=== PATIENT | male | born 1980 | race African-American/Black ===

== ENCOUNTER 2018-07-27 03:03 | Emergency (ER) | payer SELFPAY ==
[~2018-07-27] VITALS: Ht 177.8 cm; Wt 77.1 kg
--- NOTE | 2018-07-27 03:08 | ED.ADGEN ---
Past History Past Medical History: Alcoholism Smoking: Cigarettes Alcohol Use: Heavy Drug Use: Marijuana, Methamphetamine, Other Adult General Chief Complaint Chief Complaint ".. I was doing some meth.. about two years ago.. and got chest pain....".. " I ve been having it for two years...".. " It just seemed worse tonight..." " I ve not done any drugs the past month because I ve been in [facility]... I just got out..." HPI HPI Patient is a 37 year old male who presents with above hx and complaints of chest pain that he rates as 04/07. Pt. is left sided. Pain has been present for 2 yrs. and snorting meth. Pt. states he has not done drugs for past 11 month because he has been in [place] and [facility] jails. Pt. does smoke. Patient has been out of snf for the past 10 days. Patient localizes pain on the left sided chest. Coughing and movement makes pain worse. Patient denies previous heart attacks. Patient denies any recent trauma. Patient denies any recent travel. Patient denies any specific ill contacts. Patient has been coughing that is nonproductive. Patient states he has had a heart murmur in the past. Pt. normally follows at Review of Systems Review of Systems Constitutional: Denies fever or chills [] Eyes: Denies change in visual acuity, redness, or eye pain [] HENT: Denies nasal congestion or sore throat [] Respiratory: History of cough and wheezing Cardiovascular: No additional information not addressed in HPI [] GI: Denies abdominal pain, nausea, vomiting, bloody stools or diarrhea [] : Denies dysuria or hematuria [] Musculoskeletal: Denies back pain or joint pain [] Integument: Denies rash or skin lesions [] Neurologic: Denies headache, focal weakness or sensory changes [] Endocrine: Denies polyuria or polydipsia [] All other systems were reviewed and found to be within normal limits, except as documented in this note. Family History Family History Mother just had a heart transplant at . Current Medications Current Medications Current Medications Medications (Trade) Dose Ordered Sig/Chester Start Time Stop Time Status Last Admin Dose Admin Aspirin (Children'S Aspirin) 324 mg 1X ONCE 07/27/18 03:30 07/27/18 03:31 DC Ketorolac Tromethamine (Toradol 30mg Vial) 30 mg 1X ONCE 07/27/18 05:30 07/27/18 05:31 DC 07/27/18 05:46 30 MG Lactated Ringer's 1,000 ml @ 1,000 mls/hr Q1H 07/27/18 03:30 07/27/18 04:29 DC 07/27/18 04:26 1,000 MLS/HR Allergies Allergies Allergies Coded Allergies Type Severity Reaction Last Updated Verified No Known Drug Allergies 07/27/18 No Physical Exam Physical Exam Constitutional: Well developed, well nourished, no acute distress, appear intoxicated appearance. [] HENT: Normocephalic, atraumatic, bilateral external ears normal, oropharynx moist, no oral exudates, nose normal. [] Eyes: PERRLA, EOMI, conjunctiva injected, no discharge. [] Neck: Normal range of motion, no tenderness, supple, no stridor. [] Cardiovascular: Tachycardia Heart rate regular rhythm, no murmur appreciated. Lungs & Thorax: Bilateral breath sounds equal apex with scattered wheezes on auscultation [] Abdomen: Bowel sounds normal, soft, no tenderness, no masses, no pulsatile masses. [] Skin: Warm, dry, no erythema, no rash. [] Multiple tattoos. Back: No tenderness, no CVA tenderness. [] Extremities: No tenderness, no cyanosis, no clubbing, ROM intact, no edema. [] No cording appreciated Neurologic: Alert and oriented X 3, normal motor function, normal sensory function, no focal deficits noted. []Mild discoordinated. Psychologic: Affect normal, judgement normal, mood normal. [] Current Patient Data Vital Signs Vital Signs Date Time Temp Pulse Resp B/P (MAP) Pulse Ox O2 Delivery O2 Flow Rate FiO2 07/27/18 03:10 98.3 106 24 100 Room Air Lab Results Laboratory Tests Test 07/27/18 03:15 07/27/18 04:30 White Blood Count 8.9 x10^3/uL (4.0-11.0) Red Blood Count 5.42 x10^6/uL (4.30-5.70) Hemoglobin 15.2 g/dL (13.0-17.5) Hematocrit 45.0 % (39.0-53.0) Mean Corpuscular Volume 83 fL (79-100) Mean Corpuscular Hemoglobin 28 pg (25-35) Mean Corpuscular Hemoglobin Concent 34 g/dL (31-37) Red Cell Distribution Width 14.3 % (11.5-14.5) Platelet Count 365 x10^3/uL (140-400) Neutrophils (%) (Auto) 68 % (31-73) Lymphocytes (%) (Auto) 19 % (24-48) L Monocytes (%) (Auto) 11 % (0-9) H Eosinophils (%) (Auto) 0 % (0-3) Basophils (%) (Auto) 1 % (0-3) Neutrophils # (Auto) 6.0 x10^3uL (1.8-7.7) Lymphocytes # (Auto) 1.7 x10^3/uL (1.0-4.8) Monocytes # (Auto) 1.0 x10^3/uL (0.0-1.1) Eosinophils # (Auto) 0.0 x10^3/uL (0.0-0.7) Basophils # (Auto) 0.1 x10^3/uL (0.0-0.2) Prothrombin Time 11.0 SEC (9.4-11.4) Prothrombin Time INR 1.1 (0.9-1.1) PTT 22 SEC (23-33) L D-Dimer (Lory) < 0.19 mg/L (0.00-0.50) Sodium Level 136 mmol/L (136-145) Potassium Level 3.5 mmol/L (3.5-5.1) Chloride Level 100 mmol/L (98-107) Carbon Dioxide Level 22 mmol/L (21-32) Anion Gap 14 (6-14) Blood Urea Nitrogen 14 mg/dL (8-26) Creatinine 1.3 mg/dL (0.7-1.3) Estimated GFR (Cockcroft-Gault) 74.4 Glucose Level 101 mg/dL (70-99) H Calcium Level 9.1 mg/dL (8.5-10.1) Magnesium Level 2.3 mg/dL (1.8-2.4) Total Bilirubin 0.8 mg/dL (0.2-1.0) Direct Bilirubin 0.2 mg/dL (0.0-0.2) Aspartate Amino Transferase (AST) 19 U/L (15-37) Alanine Aminotransferase (ALT) 27 U/L (16-63) Alkaline Phosphatase 95 U/L (46-116) Creatine Kinase 221 U/L (39-308) Troponin I Quantitative < 0.017 ng/mL (0-0.055) AD-Lvc-B-Type Natriuretic Peptide 5 pg/mL (0-124) Total Protein 8.2 g/dL (6.4-8.2) Albumin 4.0 g/dL (3.4-5.0) Triglycerides Level 69 mg/dL (0-150) Cholesterol Level 201 mg/dL (0-200) H LDL Cholesterol, Calculated 108 mg/dL (0-100) H VLDL Cholesterol, Calculated 13 mg/dL (0-40) Non-HDL Cholesterol Calculated 121 mg/dL (0-129) HDL Cholesterol 80 mg/dL (40-60) H Cholesterol/HDL Ratio 2.0 Lipase 192 U/L (73-393) Thyroid Stimulating Hormone (TSH) 1.239 uIU/mL (0.358-3.740) Urine Collection Type Void Urine Color Yellow Urine Clarity Clear Urine pH 6.0 Urine Specific [place] 1.010 Urine Protein Neg (NEG-TRACE) Urine Glucose (UA) Neg mg/dL (NEG) Urine Ketones (Stick) 40 mg/dL (NEG) Urine Blood Neg (NEG) Urine Nitrite Neg (NEG) Urine Bilirubin Neg (NEG) Urine Urobilinogen Dipstick 0.2 mg/dL (0.2 mg/dL) Urine Leukocyte Esterase Neg (NEG) Urine RBC 0 /HPF (0-2) Urine WBC 1-4 /HPF (0-4) Urine Squamous Epithelial Cells Occ /LPF Urine Bacteria 0 /HPF (0-FEW) Urine Mucus Slight /LPF Urine Opiates Screen Neg (NEG) Urine Methadone Screen Neg (NEG) Urine Barbiturates Neg (NEG) Urine Phencyclidine Screen Neg (NEG) Urine Amphetamine/Methamphetamine Pos (NEG) Urine Benzodiazepines Screen Neg (NEG) Urine Cocaine Screen Neg (NEG) Urine Cannabinoids Screen Pos (NEG) Urine Ethyl Alcohol Pos (NEG) EKG EKG My interpretation EKG shows a sinus tachycardia at rate 113. No findings acute STEMI of contralateral changes. Radiology/Procedures Radiology/Procedures Interpretation of chest x-ray shows no acute cardiopulmonary findings.[] Course & Med Decision Making Course & Med Decision Making Pertinent Labs and Imaging studies reviewed. (See chart for details) Take daily 81 mg aspirin. Take Tylenol and ibuprofen for pain. Avoid illicit drug use. Reduce alcohol use. Follow-up primary care. Stop smoking. Consider out pt. cardiology consult. [] Final Impression Final Impression 1. Chest Pain 2. Hx of Polysubstance Abuse[] Dragon Disclaimer Dragon Disclaimer This electronic medical record was generated, in whole or in part, using a voice recognition dictation system. LUIZ STEVENSON MD Jul 27, 2018 03:08
[2018-07-27 03:10] VITALS: BP 142/83
--- NOTE | 2018-07-27 03:17 | EKG ---
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
[2018-07-27] MEDS ORDERED: ASPIRIN 81 MG TAB.CHEW PO ONE (03:30)
[2018-07-27] MEDS ORDERED: IV RINGERS SOLUTION,LACTATED 1,000 ML IV SCH (03:30)
[2018-07-27 03:37] LABS: BASO # 0.1 x10^3/uL (0.0-0.2); BASO % 1 % (0-3); EOS % 0 % (0-3); HEMOGLOBIN 15.2 g/dL (13.0-17.5); LYMPH # 1.7 x10^3/uL (1.0-4.8); LYMPH % 19 % (24-48); MEAN CORPUSCULAR HEMOGLOBIN 28 pg (25-35); MEAN CORPUSCULAR HGB CONC 34 g/dL (31-37); MEAN CORPUSCULAR VOLUME 83 fL (79-100); MONO % 11 % (0-9); NEUT % 68 % (31-73); PLATELET COUNT 365 x10^3/uL (140-400); RED BLOOD COUNT 5.42 x10^6/uL (4.30-5.70); RED CELL DISTRIBUTION WIDTH 14.3 % (11.5-14.5); WHITE BLOOD COUNT 8.9 x10^3/uL (4.0-11.0)
--- NOTE | 2018-07-27 03:45 | RAD ---
CHEST PA LATERAL Technique: PA and lateral views of the chest were obtained. Clinical History: CHEST PAIN, SOA Comparison: None. Findings: The heart and pulmonary vasculature appear within normal limits. The lungs are clear. The pleural margins are clear. Impression: No acute chest process is seen. Electronically signed by: Chris Montano III, MD (07/27/2018 3:42 AM) [facility]
[2018-07-27 03:55] LABS: CALCIUM 9.1 mg/dL (8.5-10.1); CREATININE 1.3 mg/dL (0.7-1.3); DIRECT BILIRUBIN 0.2 mg/dL (0.0-0.2); GFR 74.4; MAGNESIUM 2.3 mg/dL (1.8-2.4); POTASSIUM 3.5 mmol/L (3.5-5.1); TOTAL BILIRUBIN 0.8 mg/dL (0.2-1.0); TOTAL PROTEIN 8.2 g/dL (6.4-8.2)
[2018-07-27 05:01] LABS: BARBITURATES NEG (NEG); BENZODIAZEPINES NEG (NEG); CANNABINOIDS POS (NEG); COCAINE NEG (NEG); METHADONE NEG (NEG); OPIATES NEG (NEG); PHENCYCLIDINE NEG (NEG)
[2018-07-27 05:02] LABS: AMPHETAMINE/METHAMPHETAMINE POS (NEG)
[2018-07-27 05:10] LABS: BILIRUBIN,URINE NEG (NEG); CLARITY,URINE CLEAR; COLOR,URINE YELLOW; GLUCOSE,URINE NEG (NEG); NITRITE,URINE NEG (NEG); RBC,URINE 0 /HPF (0-2); UROBILINOGEN,URINE 0.2 mg/dL (0.2 mg/dL)
[2018-07-27 05:11] LABS: BACTERIA,URINE 0 /HPF (0-FEW); SQUAMOUS EPITHELIAL CELL,UR OCC /LPF
[2018-07-27] MEDS ORDERED: KETOROLAC 30 MG/ML VIAL. IV ONE (05:30)
[2018-07-27 13:56] LABS: THYROID STIM HORMONE (TSH) 1.239 uIU/mL (0.358-3.740)
== END 2018-07-27 06:50 | disposition home or self-care (01) ==
LOC: ER 03:03
DX: R07.89 Other chest pain (principal); F19.10 Other psychoactive substance abuse, uncomplicated; F14.10 Cocaine abuse, uncomplicated; F15.10 Other stimulant abuse, uncomplicated; F17.210 Nicotine dependence, cigarettes, uncomplicated; F10.20 Alcohol dependence, uncomplicated; Y90.0 Blood alcohol level of less than 20 mg/100 ml
CPT/HCPCS: 36415; 71046; 80048; 80061; 80076; 80307; 81001; 82550; 83690; 83735; 83880; 84443; 84484; 85025; 85379; 85610; 85730; 93005; 96374; 99285; J1885; J7120; G0479

== ENCOUNTER 2019-03-08 14:41 | Emergency (ER) | payer SELFPAY ==
[~2019-03-08] VITALS: Ht 177.8 cm; Wt 77.1 kg
[2019-03-08] MEDS ORDERED: IV NORMAL SALINE 1,000ML 1,000 ML IV SCH (14:42)
[2019-03-08] MEDS ORDERED: ASPIRIN 81 MG TAB.CHEW PO ONE (14:45)
--- NOTE | 2019-03-08 14:55 | PHYS DOC ---
Past History Past Medical History: Alcoholism (MIKE YAO DO) Past Surgical History: No Surgical History [facility] Smoking: Cigarettes Alcohol Use: Heavy Drug Use: Marijuana, Methamphetamine, Other (MIKE YAO DO) Adult General Chief Complaint Chief Complaint: CHEST PAIN HPI HPI Patient is a 38-year-old male presents with left-sided chest discomfort that initially started on his right side migrated across about 3-4 hours ago. Increased pain with breathing. It is currently in his left chest, reports it is moderate to severe in intensity. No radiation of the discomfort. Patient reports last using methamphetamine approximately 7 hours prior to arrival. He has had 2 previous episodes of chest discomfort after methamphetamine use. Has never seen a doctor for this. Notes he is having some shortness of breath. Denies any fever or cough. He uses methamphetamine today by snorting. He also smokes sit in the past. No nausea or vomiting. No home medicine is been taken. EMS gave aspirin in route.[] (MIKE YAO ) Review of Systems Review of Systems Constitutional: Denies fever or chills [] Eyes: Denies change in visual acuity, redness, or eye pain [] HENT: Denies nasal congestion or sore throat [] Respiratory: Denies cough or shortness of breath [] Cardiovascular: No additional information not addressed in HPI [] GI: Denies abdominal pain, nausea, vomiting, bloody stools or diarrhea [] : Denies dysuria or hematuria [] Musculoskeletal: Denies back pain or joint pain [] Integument: Denies rash or skin lesions [] Neurologic: Denies headache, focal weakness or sensory changes [] Endocrine: Denies polyuria or polydipsia [] All other systems were reviewed and found to be within normal limits, except as documented in this note. (MIKE YAO ) Current Medications Current Medications Current Medications Medications (Trade) Dose Ordered Sig/Chester Start Time Stop Time Status Last Admin Dose Admin Aspirin (Children'S Aspirin) 324 mg 1X ONCE 03/08/19 14:45 03/08/19 14:47 DC Sodium Chloride 1,000 ml @ 1,000 mls/hr Q1H 03/08/19 14:42 03/08/19 15:41 ([facility] Allergies Allergies Allergies Coded Allergies Type Severity Reaction Last Updated Verified No Known Drug Allergies 10/29/18 No (MIKE YAO DO) Physical Exam Physical Exam Constitutional: Well developed, well nourished, mild discomfort, non-toxic appearance. [] HENT: Normocephalic, atraumatic, bilateral external ears normal, oropharynx moist, no oral exudates, nose normal. [] Eyes: PERRLA, EOMI, conjunctiva normal, no discharge. [] Neck: Normal range of motion, no tenderness, supple, no stridor. [] Cardiovascular:Heart rate is tachycardic with a regular rhythm, no murmur [] Lungs & Thorax: Bilateral breath sounds clear to auscultation, left chest discomfort to palpation. This re-creates the pain. There is no flail segment, no subcutaneous emphysema. [] Abdomen: Bowel sounds normal, soft, no tenderness, no masses, no pulsatile masses. [] Skin: Warm, dry, no erythema, no rash. [] Back: No tenderness, no CVA tenderness. [] Extremities: No tenderness, no cyanosis, no clubbing, ROM intact, no edema. [] Neurologic: Alert and oriented X 3, normal motor function, normal sensory function, no focal deficits noted. [] Psychologic: Affect normal, judgement normal, mood normal. [] (MIKE YAO DO) EKG EKG EKG shows a sinus tachycardia at 110 bpm, normal axis, QTC 438 ms, no ST el evations. No old EKG available for comparison. Interpreted by me at 1445.[] (MIKE YAO DO) Radiology/Procedures Radiology/Procedures PORTABLE CHEST 1V History: Left sided chest pain Comparison with 07/27/2018. FINDINGS: The heart size is not enlarged. No evidence of pneumothorax, pleural effusionr or infiltrate. Bones appear intact IMPRESSION: No evidence of consolidating infiltrate.[] (MIKE YAO DO) Course & Med Decision Making Course & Med Decision Making Pertinent Labs and Imaging studies reviewed. (See chart for details) ED course: Patient arrived, was placed in bed, and tolerated exam well. He was given aspirin by EMS. Additional aspirin was held in the emergency department. Due to his agitation and reported sympathomimetic use/abuse, he was given benzodiazepines and several divided doses to control the agitation. This didn't improve his pain. Patient has been resting comfortably pending a second set of cardiac enzymes. Patient care was endorsed to the oncoming physician at 1800 with the second set of cardiac enzymes pending.[] (MIKE YAO DO) Course & Med Decision Making Impression: 1. Chest Pain- suspect multifactorial- 2. Polysubstance Abuse 3. Drug Screen + Meth 4. Hypokalemia 3.2 5. Elevated Silvio. - "? Biliary Colic 6. Tobacco Use Pt. requesting discharge. Risks discussed. Pt. exhibit UCAR capacity. Declines admission. Pt. encouraged to stop drug abuse and smoking. At time of discharge pt. with out complaints. Encouraged pt. to follow up with primary. Return if any concerns. (LUIZ STEVENSON MD) Dragon Disclaimer Dragon Disclaimer This electronic medical record was generated, in whole or in part, using a voice recognition dictation system. (MIKE YAO DO) Departure Departure: Referrals: PCP,NO (PCP) Discharge Summary Visit Information Final Diagnosis Problems Medical Problems: (1) Chest pain Status: Acute (2) Polysubstance abuse Status: Acute (LUIZ STEVENSON MD) Brief Hospital Course Allergies Allergies Coded Allergies Type Severity Reaction Last Updated Verified No Known Drug Allergies 07/27/18 No Vital Signs Vital Signs Date Time Temp Pulse Resp B/P (MAP) Pulse Ox O2 Delivery O2 Flow Rate FiO2 03/08/19 20:33 80 16 142/94 (110) 96 Room Air 03/08/19 14:41 97.4 Lab Results Laboratory Tests Test 03/08/19 14:42 03/08/19 14:52 03/08/19 17:56 03/08/19 18:58 Prothrombin Time 11.1 SEC (9.4-11.4) Prothromb Time International Ratio 1.1 (0.9-1.1) Activated Partial Thromboplast Time 25 SEC (23-33) Urine Opiates Screen Neg (NEG) Urine Methadone Screen Neg (NEG) Urine Barbiturates Neg (NEG) Urine Phencyclidine Screen Neg (NEG) Urine Amphetamine/Methamphetamine Pos (NEG) Urine Benzodiazepines Screen Neg (NEG) Urine Cocaine Screen Neg (NEG) Urine Cannabinoids Screen Neg (NEG) Urine Ethyl Alcohol Neg (NEG) White Blood Count 6.9 x10^3/uL (4.0-11.0) Red Blood Count 5.75 x10^6/uL (4.30-5.70) Hemoglobin 16.5 g/dL (13.0-17.5) Hematocrit 48.4 % (39.0-53.0) Mean Corpuscular Volume 84 fL (79-100) Mean Corpuscular Hemoglobin 29 pg (25-35) Mean Corpuscular Hemoglobin Concent 34 g/dL (31-37) Red Cell Distribution Width 13.7 % (11.5-14.5) Platelet Count 294 x10^3/uL (140-400) Neutrophils (%) (Auto) 66 % (31-73) Lymphocytes (%) (Auto) 22 % (24-48) Monocytes (%) (Auto) 12 % (0-9) Eosinophils (%) (Auto) 0 % (0-3) Basophils (%) (Auto) 1 % (0-3) Neutrophils # (Auto) 4.5 x10^3uL (1.8-7.7) Lymphocytes # (Auto) 1.5 x10^3/uL (1.0-4.8) Monocytes # (Auto) 0.8 x10^3/uL (0.0-1.1) Eosinophils # (Auto) 0.0 x10^3/uL (0.0-0.7) Basophils # (Auto) 0.1 x10^3/uL (0.0-0.2) D-Dimer (Lory) < 0.19 mg/L (0.00-0.50) Sodium Level 138 mmol/L (136-145) Potassium Level 3.2 mmol/L (3.5-5.1) Chloride Level 99 mmol/L (98-107) Carbon Dioxide Level 26 mmol/L (21-32) Anion Gap 13 (6-14) Blood Urea Nitrogen 6 mg/dL (8-26) Creatinine 1.1 mg/dL (0.7-1.3) Estimated GFR (Cockcroft-Gault) 89.7 BUN/Creatinine Ratio 5 (6-20) Glucose Level 94 mg/dL (70-99) Calcium Level 9.6 mg/dL (8.5-10.1) Magnesium Level 2.0 mg/dL (1.8-2.4) Total Bilirubin 2.4 mg/dL (0.2-1.0) Aspartate Amino Transf (AST/SGOT) 28 U/L (15-37) Alanine Aminotransferase (ALT/SGPT) 32 U/L (16-63) Alkaline Phosphatase 91 U/L (46-116) Troponin I Quantitative < 0.017 ng/mL (0-0.055) < 0.017 ng/mL (0-0.055) ZU-Byv-Z-Type Natriuretic Peptide 22 pg/mL (0-124) Total Protein 8.5 g/dL (6.4-8.2) Albumin 4.3 g/dL (3.4-5.0) Albumin/Globulin Ratio 1.0 (1.0-1.7) Lipase 201 U/L (73-393) Urine Collection Type Unknown Urine Color Yellow Urine Clarity Hazy Urine pH 7.0 Urine Specific [place] 1.010 Urine Protein Neg (NEG-TRACE) Urine Glucose (UA) Neg mg/dL (NEG) Urine Ketones (Stick) 40 mg/dL (NEG) Urine Blood Neg (NEG) Urine Nitrite Neg (NEG) Urine Bilirubin Neg (NEG) Urine Urobilinogen Dipstick 0.2 mg/dL (0.2 mg/dL) Urine Leukocyte Esterase Neg (NEG) Urine RBC 0 /HPF (0-2) Urine WBC 0 /HPF (0-4) Urine Squamous Epithelial Cells Occ /LPF Urine Bacteria 0 /HPF (0-FEW) Brief Hospital Course Mr. Soto is a 38 old male who presented with chest pain after using meth. Declines admission, demands discharge. (LUIZ STEVENSON MD) Discharge Information Condition at Discharge: Improved, Stable Disposition/Orders: D/C to Home Dischare Medications Current Medications Aspirin (Children'S Aspirin) 324 mg 1X ONCE PO ; Start 03/08/19 at 14:45; Stop 03/08/19 at 14:47; Status DC Sodium Chloride 1,000 ml @ 1,000 mls/hr Q1H IV Last administered on 03/08/19at 14:55; Start 03/08/19 at 14:42; Stop 03/08/19 at 15:41; Status DC Lorazepam (Ativan Inj) 1 mg 1X ONCE IV Last administered on 03/08/19at 15:03; Start 03/08/19 at 15:00; Stop 03/08/19 at 15:01; Status DC Lorazepam (Ativan Inj) 1 mg 1X ONCE IV Last administered on 03/08/19at 15:43; Start 03/08/19 at 15:45; Stop 03/08/19 at 15:46; Status DC Lactated Ringer's 1,000 ml @ 1,000 mls/hr 1X ONCE IV ; Start 03/08/19 at 18:15; Stop 03/08/19 at 19:14; Status DC Lactated Ringer's 1,000 ml @ 1,000 mls/hr 1X STAT IV ; Start 03/08/19 at 18:27; Stop 03/08/19 at 19:26; Status DC Potassium Chloride (KCl Oral Soln) 40 meq 1X ONCE PO ; Start 03/08/19 at 20:30; Stop 03/08/19 at 20:31; Status DC Active Scripts Active Reported No Known Medications Prior To Admisstion (Info) Each 1 Each MC (LUIZ STEVENSON MD) Dragon Disclaimer This chart was dictated in whole or in part using Voice Recognition software in a busy, high-work load, and often noisy Emergency Department environment. It may contain unintended and wholly unrecognized errors or omissions. (LUIZ STEVENSON MD) MIKE YAO DO Mar 08, 2019 14:55 LUIZ STEVENSON MD Mar 09, 2019 03:55
[2019-03-08 15:07] LABS: BASO # 0.1 x10^3/uL (0.0-0.2); BASO % 1 % (0-3); EOS % 0 % (0-3); HEMATOCRIT 48.4 % (39.0-53.0); HEMOGLOBIN 16.5 g/dL (13.0-17.5); LYMPH # 1.5 x10^3/uL (1.0-4.8); LYMPH % 22 % (24-48); MEAN CORPUSCULAR HEMOGLOBIN 29 pg (25-35); MEAN CORPUSCULAR HGB CONC 34 g/dL (31-37); MEAN CORPUSCULAR VOLUME 84 fL (79-100); MONO # 0.8 x10^3/uL (0.0-1.1); MONO % 12 % (0-9); NEUT # 4.5 x10^3uL (1.8-7.7); NEUT % 66 % (31-73); PLATELET COUNT 294 x10^3/uL (140-400); RED BLOOD COUNT 5.75 x10^6/uL (4.30-5.70); RED CELL DISTRIBUTION WIDTH 13.7 % (11.5-14.5); WHITE BLOOD COUNT 6.9 x10^3/uL (4.0-11.0)
--- NOTE | 2019-03-08 15:18 | RAD ---
PORTABLE CHEST 1V History: Left sided chest pain Comparison with 07/27/2018. FINDINGS: The heart size is not enlarged. No evidence of pneumothorax, pleural effusionr or infiltrate. Bones appear intact IMPRESSION: No evidence of consolidating infiltrate. Electronically signed by: Raghavendra Roth MD (03/08/2019 3:15 PM) [id number]
[2019-03-08 15:23] LABS: ALBUMIN 4.3 g/dL (3.4-5.0); CALCIUM 9.6 mg/dL (8.5-10.1); CREATININE 1.1 mg/dL (0.7-1.3); GFR 89.7; POTASSIUM 3.2 mmol/L (3.5-5.1); TOTAL BILIRUBIN 2.4 mg/dL (0.2-1.0); TOTAL PROTEIN 8.5 g/dL (6.4-8.2)
[2019-03-08] MEDS ORDERED: IV RINGERS SOLUTION,LACTATED 1,000 ML IV ONE (18:15)
[2019-03-08] MEDS ORDERED: IV RINGERS SOLUTION,LACTATED 1,000 ML IV STA (18:27)
[2019-03-08 19:41] LABS: BARBITURATES NEG (NEG); BENZODIAZEPINES NEG (NEG); CANNABINOIDS NEG (NEG); COCAINE NEG (NEG); METHADONE NEG (NEG); OPIATES NEG (NEG); PHENCYCLIDINE NEG (NEG)
[2019-03-08 19:42] LABS: AMPHETAMINE/METHAMPHETAMINE POS (NEG)
[2019-03-08 19:49] LABS: BACTERIA,URINE 0 /HPF (0-FEW); BILIRUBIN,URINE NEG (NEG); CLARITY,URINE HAZY; COLOR,URINE YELLOW; GLUCOSE,URINE NEG (NEG); NITRITE,URINE NEG (NEG); RBC,URINE 0 /HPF (0-2); SQUAMOUS EPITHELIAL CELL,UR OCC /LPF; UROBILINOGEN,URINE 0.2 mg/dL (0.2 mg/dL); WBC,URINE 0 /HPF (0-4)
[2019-03-08] MEDS ORDERED: POTASSIUM CHLORIDE 20 MEQ/15 ML ORAL LIQUID. PO ONE (20:30)
[2019-03-08 20:33] VITALS: BP 142/94
--- NOTE | 2019-03-11 07:39 | EKG ---
[address] [address] Test Date: 2019-03-08 Test Time: 14:45:21 Pat Name: KOBY PATEL Department: Room: Gender: M Infrastructure Design Engineer: : 1980 Requested By: MIKE YAO Order Number: [id number] Reading MD: Measurements Intervals [place] Rate: 110 P: 70 [place]: 118 QRS: 80 QRSD: 80 T: 43 QT: 320 QTc: 438 Interpretive Statements SINUS TACHYCARDIA OTHERWISE NORMAL ECG RI6.01 No previous ECG available for comparison
== END 2019-03-08 20:38 | disposition home or self-care (01) ==
LOC: ER 14:41
DX: R07.89 Other chest pain (principal); F19.10 Other psychoactive substance abuse, uncomplicated; F15.10 Other stimulant abuse, uncomplicated; E87.6 Hypokalemia; F17.210 Nicotine dependence, cigarettes, uncomplicated; F10.20 Alcohol dependence, uncomplicated; F12.10 Cannabis abuse, uncomplicated; Y90.0 Blood alcohol level of less than 20 mg/100 ml
CPT/HCPCS: 36415; 71045; 80053; 80307; 81001; 83690; 83735; 83880; 84484; 85025; 85379; 85610; 85730; 93005; 96374; 96376; 99285; J2060; J7030